=== PATIENT | male | born 1960 | race Caucasian/White ===

== ENCOUNTER → 2020-09-08 11:25 | Outpatient (CLI) | payer OTHER, MEDICAID, SELFPAY ==
--- NOTE | 2020-09-08 11:32 | DI.MRI.S_ITS ---
PROCEDURE: MR CERVICAL SPINE WO CON INDICATIONS: Radiculopathy, cervical region TECHNIQUE: Noncontrast sagittal T1 spin echo and T2 fast spin echo, sagittal STIR, foraminal oblique sagittal T2 fast spin echo, and axial gradient echo or T2 fast spin echo through the cervical spine. COMPARISON: None. FINDINGS: Image quality: Excellent. Alignment and Curvature: Straightening of the normal lordotic curvature. Trace retrolisthesis of C5 on C6 and trace anterolisthesis of C6 on C7. Bone Marrow: No fracture. Multilevel degenerative endplate sclerosis and spurring. Diffuse facet arthropathy. Spinal Cord: Visualized spinal cord has normal size and signal. No cerebellar tonsillar herniation. Paraspinous Soft Tissues: No paravertebral masses. Prevertebral soft tissues are normal in thickness. C2-C3: Normal appearance. C3-C4: Mild canal narrowing. Moderate right foraminal stenosis. No definite left foraminal narrowing. C4-C5: Mild canal narrowing which is mildly asymmetric, right greater than left. Moderate right foraminal stenosis with possible nerve root compression. Mild left foraminal narrowing. C5-C6: Mild canal narrowing with effacement of the anterior thecal sac and minimal mass effect on the cord. Mild to moderate bilateral foraminal narrowing. C6-C7: Mild canal narrowing. No foraminal stenoses. C7-T1: No canal stenosis. No foraminal stenoses IMPRESSION: Mid to lower cervical spondylosis with mild multilevel canal narrowing. Moderate right C3-C4 foraminal stenosis Moderate right C4-C5 foraminal stenosis [id number] bilateral C5-C6 foraminal narrowing. Straightening of the normal lordotic curvature. Dictated by: Moi Person M.D. on 09/09/2020 at 9:00 Approved by: Moi Person M.D. on 09/09/2020 at 9:05
== END ==
PROVIDERS: Referring Provider Family Medicine; Visit Provider Family Medicine
DX: M54.2 Cervicalgia (principal); M47.22 Other spondylosis with radiculopathy, cervical region; M48.02 Spinal stenosis, cervical region
CPT/HCPCS: 72141

== ENCOUNTER → 2021-01-30 10:48 | Outpatient (CLI) | payer OTHER, SELFPAY ==
[2021-01-30 19:51] LABS: Alanine Aminotransferase 15 IU/L (<50); Albumin 4.3 g/dL (3.5-5.0); Albumin Globulin Ratio 1.4 (1.0-2.8); Alkaline Phosphatase 81 U/L (38-126); Aspartate Aminotransferase 33 IU/L (17-59); BUN Creatinine Ratio 14.3 (6-22); Bilirubin Total 0.5 mg/dL (0.2-1.3); Blood Urea Nitrogen 11 mg/dL (9-20); Calcium 9.8 mg/dL (8.4-10.2); Carbon Dioxide 29 mmol/L (22-32); Chloride 105 mmol/L (98-107); Cholesterol 138 mg/dL (140-199); Estimated Glomerular Filt Rate > 60.0 mL/min (>60); Glucose 93 mg/dL (70-100); HDL Cholesterol 39 mg/dL (40-60); HEMOLYSIS < 15 (0-50); LDL Cholesterol Calculated 75 mg/dL (<100); Potassium 4.6 mmol/L (3.4-5.1); Sodium 139 mmol/L (137-145); Total Protein 7.3 g/dL (6.3-8.2); Triglycerides 120 mg/dL (35-150)
== END ==
PROVIDERS: PCP Physician Assistant; Referring Provider Physician Assistant; Visit Provider Physician Assistant
DX: M25.50 Pain in unspecified joint (principal); Z12.5 Encounter for screening for malignant neoplasm of prostate; Z13.6 Encounter for screening for cardiovascular disorders; Z82.49 Family history of ischemic heart disease and other diseases of the circulatory system
CPT/HCPCS: 80053; 80061; 84550

== ENCOUNTER → 2021-06-17 12:33 | Outpatient (CLI) | payer OTHER, SELFPAY ==
--- NOTE | 2021-06-17 12:34 | DI.US.S_ITS ---
PROCEDURE: US ABDOMEN LIMITED INDICATIONS: RUQ PAIN TECHNIQUE: Real-time scanning was performed of the abdominal and retroperitoneal organs, with image documentation. COMPARISON: None. FINDINGS: Liver: Increased echogenicity of the liver, compatible with hepatic steatosis. Hypoechoic area adjacent to the gallbladder fossa, which may reflect focal fatty sparing. Gallbladder: No gallbladder wall thickening, pericholecystic fluid, or shadowing gallstones. Biliary ducts: Intrahepatic bile ducts are non-dilated. Extrahepatic bile duct caliber measures 5.4 mm. Normal is 6-7 mm or less in diameter, or 10 mm or less post-cholecystectomy. Pancreas: Visualized portions of the pancreas are sonographically normal. Miscellaneous: No free abdominal fluid. IMPRESSION: No significant abnormality. Dictated by: Ron Aleman M.D. on 06/17/2021 at 13:18 Approved by: Ron Aleman M.D. on 06/17/2021 at 13:20
== END ==
PROVIDERS: PCP Family Medicine; Referring Provider Family Medicine; Visit Provider Family Medicine
DX: R10.11 Right upper quadrant pain (principal)
CPT/HCPCS: 76705

== ENCOUNTER → 2021-07-31 10:47 | Outpatient (CLI) | payer OTHER, SELFPAY ==
--- NOTE | 2021-07-31 11:43 | DI.CT.S_ITS ---
PROCEDURE: CT ABDOMEN PELVIS W CON INDICATIONS: hernia TECHNIQUE: After the administration of oral and IV contrast, axial sections were acquired from the lung bases to the pubic symphysis. Coronal and sagittal reformats were performed. For radiation dose reduction, the following was used: automated exposure control, adjustment of mA and/or kV according to patient size. COMPARISON: None. FINDINGS: Image quality: Excellent. Lung bases: There is minimal dependent atelectasis. Heart: Heart is normal in size. ABDOMEN: Liver: No mass lesion. Gallbladder: Within normal limits without gallstones. Biliary ducts: No biliary ductal dilatation. Pancreas: Unremarkable. Spleen: Normal in size. Adrenal Glands: No adrenal nodules. Kidneys and Ureters: No hydronephrosis. There is a small exophytic left renal cyst measuring 1.3 cm which appears minimally hyperdense with attenuation values slightly higher than expected for a simple cyst. Stomach and Bowel: Stomach, small bowel loops, and colon are normal in caliber and wall thickness. The appendix is reportedly surgically absent. There is colonic diverticulosis without acute diverticulitis. Peritoneum: No abnormal intraperitoneal fluid. No free air. Ventral Wall: No hernia. Abdominal Nodes: No retroperitoneal or mesenteric adenopathy by size criteria. Vessels: Aorta and inferior vena cava are normal in size. PELVIS: Pelvic Organs: Unremarkable. Bladder: Unremarkable. Pelvic Nodes: No enlarged lymph nodes. Miscellaneous: There are small bilateral fat-containing indirect inguinal hernias. Bones: Visualized osseous structures demonstrate no suspicious focal lesions. IMPRESSION: 1. Small bilateral fat-containing indirect inguinal hernias. 2. Colonic diverticulosis without acute diverticulitis. Dictated by: Brannon Almeida M.D. on 07/31/2021 at 16:33 Approved by: Brannon Almeida M.D. on 07/31/2021 at 16:45
== END ==
PROVIDERS: PCP Family Medicine; Referring Provider Surgery; Visit Provider Surgery
DX: K40.20 Bilateral inguinal hernia, without obstruction or gangrene, not specified as recurrent (principal); K57.90 Diverticulosis of intestine, part unspecified, without perforation or abscess without bleeding
CPT/HCPCS: 74177; Q9967

== ENCOUNTER → 2021-10-15 08:03 | Outpatient (CLI) | payer OTHER, SELFPAY ==
[2021-10-15 18:42] LABS: Add Manual Diff / Slide Review NO; Basophils Absolute Auto 0 /uL (0-100); Basophils Percent Auto 0.8 % (0-2); Eosinophils Absolute Auto 100 /uL (0-450); Eosinophils Percent Auto 1.7 % (2-4); Hemoglobin 14.1 g/dL (13.5-17.5); Lymphocytes Absolute Auto 1700 /uL (1100-4500); Lymphocytes Percent Auto 29.9 % (25-40); Mean Corpuscular HGB Conc 34.5 % (30-36); Mean Corpuscular Hemoglobin 32.5 PG (26-34); Mean Corpuscular Volume 94.4 fL (80-100); Monocytes Absolute Auto 500 /uL (0-900); Neutrophils Absolute Auto 3400 /uL (1500-7000); Neutrophils Percent Auto 58.6 % (50-75); Platelet Count 261 X10^3/uL (150-400); Red Blood Cell Count 4.34 X10^6/uL (4.5-5.9); Red Cell Distribution Width 12.6 % (11.6-14.8); White Blood Cell Count 5.8 X10^3/uL (4.5-11.0)
[2021-10-15 19:13] LABS: Alanine Aminotransferase 13 IU/L (<50); Albumin 4.6 g/dL (3.5-5.0); Albumin Globulin Ratio 1.8 (1.0-2.8); Alkaline Phosphatase 63 U/L (38-126); Aspartate Aminotransferase 30 IU/L (17-59); BUN Creatinine Ratio 16.5 (6-22); Bilirubin Total 0.6 mg/dL (0.2-1.3); Blood Urea Nitrogen 13 mg/dL (9-20); Calcium 9.5 mg/dL (8.4-10.2); Carbon Dioxide 28 mmol/L (22-32); Chloride 105 mmol/L (98-107); Cholesterol 130 mg/dL (140-199); Estimated Glomerular Filt Rate > 60 mL/min (>60); Globulin 2.6 g/dL (1.7-4.1); Glucose 95 mg/dL (70-100); HDL Cholesterol 38 mg/dL (40-60); HEMOLYSIS 22 (0-50); LDL Cholesterol Calculated 71 mg/dL (<100); Potassium 4.7 mmol/L (3.4-5.1); Sodium 140 mmol/L (137-145); Total Protein 7.2 g/dL (6.3-8.2); Triglycerides 107 mg/dL (35-150)
[2021-10-15 19:41] LABS: TSH w/ Reflex to FT4 1.17 uIU/mL (0.47-4.68)
== END ==
PROVIDERS: PCP Family Medicine; Visit Provider Family Medicine
DX: Z00.00 Encounter for general adult medical examination without abnormal findings (principal); I10 Essential (primary) hypertension; K43.2 Incisional hernia without obstruction or gangrene
CPT/HCPCS: 80053; 80061; 84153; 84443; 85025

== ENCOUNTER → 2021-11-05 09:37 | Outpatient (CLI) | payer OTHER, SELFPAY ==
[2021-11-05 18:38] LABS: Add Manual Diff / Slide Review NO; Basophils Absolute Auto 0 /uL (0-100); Basophils Percent Auto 0.7 % (0-2); Eosinophils Absolute Auto 100 /uL (0-450); Eosinophils Percent Auto 2.4 % (2-4); Hematocrit 40.4 % (41-53); Hemoglobin 14.3 g/dL (13.5-17.5); Lymphocytes Absolute Auto 1400 /uL (1100-4500); Lymphocytes Percent Auto 30.9 % (25-40); Mean Corpuscular HGB Conc 35.3 % (30-36); Mean Corpuscular Hemoglobin 33.1 PG (26-34); Mean Corpuscular Volume 93.8 fL (80-100); Monocytes Absolute Auto 500 /uL (0-900); Monocytes Percent Auto 11.5 % (3-14); Neutrophils Absolute Auto 2600 /uL (1500-7000); Neutrophils Percent Auto 54.5 % (50-75); Platelet Count 240 X10^3/uL (150-400); Red Blood Cell Count 4.31 X10^6/uL (4.5-5.9); Red Cell Distribution Width 12.8 % (11.6-14.8); White Blood Cell Count 4.7 X10^3/uL (4.5-11.0)
[2021-11-05 18:47] LABS: Alanine Aminotransferase 12 IU/L (<50); Albumin 4.2 g/dL (3.5-5.0); Albumin Globulin Ratio 1.6 (1.0-2.8); Alkaline Phosphatase 66 U/L (38-126); Aspartate Aminotransferase 29 IU/L (17-59); Bilirubin Total 0.5 mg/dL (0.2-1.3); Blood Urea Nitrogen 15 mg/dL (9-20); Calcium 9.1 mg/dL (8.4-10.2); Carbon Dioxide 26 mmol/L (22-32); Chloride 105 mmol/L (98-107); Estimated Glomerular Filt Rate > 60 mL/min (>60); Globulin 2.6 g/dL (1.7-4.1); Glucose 98 mg/dL (70-100); HEMOLYSIS 20 (0-50); Potassium 4.3 mmol/L (3.4-5.1); Sodium 139 mmol/L (137-145); Total Protein 6.8 g/dL (6.3-8.2)
== END ==
PROVIDERS: PCP Family Medicine; Visit Provider Physician Assistant
DX: R53.83 Other fatigue (principal)
CPT/HCPCS: 80053; 85025

== ENCOUNTER → 2022-02-26 11:16 | Outpatient (CLI) | payer OTHER, SELFPAY ==
[2022-02-26 19:39] LABS: Cholesterol 125 mg/dL (140-199); HDL Cholesterol 35 mg/dL (40-60); LDL Cholesterol Calculated 72 mg/dL (<100); Triglycerides 89 mg/dL (35-150)
== END ==
PROVIDERS: PCP Family Medicine; Visit Provider Family Medicine
DX: E78.00 Pure hypercholesterolemia, unspecified (principal)
CPT/HCPCS: 80061

== ENCOUNTER → 2023-03-03 09:00 | Outpatient (CLI) | payer OTHER, SELFPAY ==
[2023-03-05 16:10] LABS: Fecal Immunochemical Test Negative (Negative)
== END ==
PROVIDERS: PCP Physician Assistant Medical; Visit Provider Physician Assistant Medical
DX: K21.9 Gastro-esophageal reflux disease without esophagitis (principal)
CPT/HCPCS: 82274

== ENCOUNTER → 2023-05-27 09:43 | Outpatient (CLI) | payer OTHER, SELFPAY ==
[2023-05-27 21:09] LABS: Add Manual Diff / Slide Review NO; Basophils Absolute Auto 100 /uL (0-100); Basophils Percent Auto 1.6 % (0-2); Eosinophils Absolute Auto 100 /uL (0-450); Eosinophils Percent Auto 2.3 % (2-4); Hematocrit 42.2 % (41-53); Hemoglobin 14.3 g/dL (13.5-17.5); Lymphocytes Absolute Auto 2100 /uL (1100-4500); Lymphocytes Percent Auto 35.3 % (25-40); Mean Corpuscular HGB Conc 33.8 % (30-36); Mean Corpuscular Hemoglobin 31.5 PG (26-34); Mean Corpuscular Volume 93.2 fL (80-100); Monocytes Absolute Auto 500 /uL (0-900); Monocytes Percent Auto 8.5 % (3-14); Neutrophils Absolute Auto 3100 /uL (1500-7000); Neutrophils Percent Auto 52.3 % (50-75); Platelet Count 267 X10^3/uL (150-400); Red Blood Cell Count 4.53 X10^6/uL (4.5-5.9); Red Cell Distribution Width 12.6 % (11.6-14.8); White Blood Cell Count 5.8 X10^3/uL (4.5-11.0)
[2023-05-27 22:19] LABS: Alanine Aminotransferase 15 IU/L (<50); Albumin 4.2 g/dL (3.5-5.0); Albumin Globulin Ratio 1.4 (1.0-2.8); Alkaline Phosphatase 73 U/L (38-126); Aspartate Aminotransferase 28 IU/L (17-59); BUN Creatinine Ratio 16.5 (6-22); Bilirubin Total 0.6 mg/dL (0.2-1.3); Blood Urea Nitrogen 13 mg/dL (9-20); Carbon Dioxide 27 mmol/L (22-32); Chloride 105 mmol/L (98-107); Cholesterol 145 mg/dL (140-199); Estimated Glomerular Filt Rate > 60 mL/min (>60); Glucose 99 mg/dL (80-110); HDL Cholesterol 38 mg/dL (40-60); HEMOLYSIS < 15 (0-50); LDL Cholesterol Calculated 92 mg/dL (<100); Potassium 4.7 mmol/L (3.4-5.1); Sodium 138 mmol/L (137-145); Total Protein 7.2 g/dL (6.3-8.2); Triglycerides 73 mg/dL (35-150)
== END ==
PROVIDERS: PCP Physician Assistant Medical; Visit Provider Physician Assistant Medical
DX: I10 Essential (primary) hypertension (principal)
CPT/HCPCS: 80053; 80061; 85025

== ENCOUNTER 2023-06-07 10:53 | Day surgery (SDC) | payer OTHER, SELFPAY ==
[2023-06-07] VITALS (7 sets, daily range): BP systolic 87–153; BP diastolic 41–83; PULSE 61–72; RESP 13–17; TEMP 36.2–36.3; O2SAT 92–100; BMI 32.2
--- NOTE | 2023-06-07 | PATH_ITS ---
[facility] Accession Number: [id number] No. of containers..01 Tissue . 01 Material submitted: . stomach - STOMACH . 01 Clinical history: . R/O HP . 01 Diagnosis: Stomach, Biopsy: Antral mucosa with mild chronic gastritis. Negative for Helicobacter by immunohistochemistry. Negative for intestinal metaplasia. Negative for dysplasia and malignancy. [facility] 06/16/2023 0820 Local . 01 Electronically signed: . Aleah Riddle MD, Pathologist NPI- [id number] . 01 Gross description: . STOMACH: Received in formalin is 2 fragment(s) of rodrigez, soft tissue measuring 0.3 x 0.2 x 0.1 cm to 0.3 x 0.1 x 0.1 cm submitted entirely in 1 cassette(s) /AAY 06/08/2023 0534 Local . 01 Microscopic: . An immunohistochemical stain was performed to evaluate for Helicobacter organisms and is negative. The control stain showed appropriate reactivity. . . * This test was developed and its performance characteristics determined by [facility]. It has not been cleared or approved by the U.S. Food and Drug Administration. The FDA has determined that such clearance or approval is not necessary. This test is used for clinical purposes. It should not be regarded as investigational or for research. . 01 Pathologist provided ICD-10: R11.0 . 01 CPT . 909788, B11811 Specimen Comment: A courtesy copy of this report has been sent to [phone] Performed at: 01 [facility] [address] [place] [address] [address], [place], [place] [id number] MD Brannon Amos MD Phone: [phone]
[2023-06-07] MEDS: LACTATED RINGERS 1,000 ML 42 ML IV (11:29)
--- NOTE | 2023-06-07 11:31 | PM.HP.1 ---
History of Present Illness History of Present Illness Date Patient Seen: 06/07/23 Chief complaint: EGD & Colonoscopy Narrative: Nausea rule out possible GE reflux. Also rectal bleeding need for colorectal cancer screening [facility] Medical History (Updated 02/16/23 @ 15:26 by Amy Patiño PA-C) De Quervain's tenosynovitis Obstructive sleep apnea Well adult exam Abdominal pain Hypertension Incisional hernia Allergies (~1989) Neck pain (~2019) Shoulder pain (~2019) Foot pain (~2014) Tinnitus (~2015) Osteoarthritis, generalized (~2019) Cervical stenosis of spine Screening for malignant neoplasm of prostate Generalized joint pain Encounter for screening for cardiovascular disorders Surgical History Anesthesia Surfer's ear (~1999) History of appendectomy (~1975) Family History Father History of heart disease Mother Cancer Grandmother Stroke Grandfather Pneumonia Grandmother Cancer Social History household members: significant other Smoking Status: Never smoker Meds Home Medications and Allergies Home Medications Medication Instructions Recorded Confirmed Type methocarbamol 500 mg tablet 500 mg PO QID PRN 01/26/21 05/06/23 History aspirin 81 mg tablet,delayed 81 mg PO DAILY 01/27/21 06/07/23 History release (Adult Aspirin Regimen) alprazolam 0.5 mg tablet (Xanax) 0.5 mg PO DAILY PRN Allergy 08/14/22 06/07/23 History Symptoms cetirizine 10 mg capsule (Zyrtec) 10 mg PO DAILY PRN sinusitis #30 08/14/22 06/07/23 Rx caps fluticasone propionate 50 1 spray intranasal BID #16 grams 08/14/22 06/07/23 Rx mcg/actuation nasal spray,suspension (Flonase Allergy Relief) albuterol sulfate 90 mcg/actuation 1 inh inhalation ONCE wheezing 02/16/23 06/07/23 Rx aerosol inhaler #6.7 grams famotidine 20 mg tablet 20 mg PO BID #60 tabs 02/26/23 06/07/23 Rx (Zantac-360 (famotidine)) losartan 50 mg tablet See Rx Instructions .Route 03/30/23 06/07/23 Rx .COMPLEX #90 tabs atorvastatin 10 mg tablet 10 mg PO ONCE PM #90 tabs 05/06/23 06/07/23 Rx omeprazole 20 mg capsule,delayed 20 mg PO BID #180 caps 05/06/23 05/06/23 Rx release Allergies Allergy/AdvReac Type Severity Reaction Status Date / Time amoxicillin Allergy Unknown Hives Verified 06/07/23 11:09 Exam Vital Signs (past 8 hours): - 06/07/23 11:21 Temperature 97.1 F L Pulse Rate 72 Respiratory Rate 16 Blood Pressure 153/83 H Pulse Oximetry 99 Oxygen Delivery Method Room Air Oxygen Delivery Method Room Air Narrative Exam Narrative: Oropharynx free of lesions Chest clear to auscultation percussion Cardiac exam reveals no S3 or murmur Assessment & Plan Assessment & Plan narrative: Nausea possible GE reflux rule out same. Rectal bleeding rule out colorectal neoplasia Risks benefits alternatives have been explained.
--- NOTE | 2023-06-07 11:32 | PM.OP.EC ---
Operative Date/Time/Diagnoses Date of procedure: 06/07/23 Pre-op diagnosis: See indication and findings Procedure & Clinicians Study performed: EGD and colonoscopy Indications: Nausea possible GE reflux and rectal bleeding need for colorectal cancer screening Surgeon: Pita Jarquin Procedure Notes Procedure in detail: After informed consent was obtained the patient was placed in left lateral decubitus position. The video upper scope was placed into the oropharynx and with the patient's help swelled into the esophagus. The esophagus stomach and duodenum were carefully examined. On withdrawal, retroflexed view the GE junction was performed. The scope was removed. The patient tolerated procedure well. The colonoscope was then substituted and the patient turned. The scope was placed in the rectum slowly advanced cecum. On slow withdrawal mucosa was carefully examined. The scope was removed. The patient tolerated procedure well. Blood loss none Complications none Sedation mac Findings EGD 1. Normal esophagus 2. Normal proximal stomach 3. Extensive erosive gastritis in the antrum and pre-pyloric positions biopsies taken to rule out Helicobacter 4. Normal duodenal bulb and sweep Colonoscopy 1. Minimal internal hemorrhoids 2. Otherwise negative colonoscopy to cecum Will be in touch regarding biopsies of his stomach which will need treatment. He is currently off of any anti secretory medications. He does not need colonoscopy for 10 years
== END 2023-06-07 13:00 | disposition home or self-care (01) ==
PROVIDERS: PCP Physician Assistant Medical; Referring Provider Internal Medicine Gastroenterology; Visit Provider Internal Medicine Gastroenterology
PROC: 0DJ08ZZ Inspection of Upper Intestinal Tract, Via Natural or Artificial Opening Endoscopic (ICD-10-PCS; CPT 43235; principal; 2023-06-07 12:30)
PROC: 0DJD8ZZ Inspection of Lower Intestinal Tract, Via Natural or Artificial Opening Endoscopic (ICD-10-PCS; CPT 45378; 2023-06-07 12:30)
DX: K62.5 Hemorrhage of anus and rectum (principal); R11.0 Nausea; K64.8 Other hemorrhoids; K29.50 Unspecified chronic gastritis without bleeding
CPT/HCPCS: 45378; 43239

== ENCOUNTER → 2024-05-08 09:09 | Outpatient (CLI) | payer BC, SELFPAY ==
[2024-05-08 19:03] LABS: Add Manual Diff / Slide Review NO; Basophils Absolute Auto 0 /uL (0-100); Basophils Percent Auto 0.8 % (0-2); Eosinophils Absolute Auto 100 /uL (0-450); Eosinophils Percent Auto 1.5 % (2-4); Hematocrit 42.9 % (41-53); Hemoglobin 14.6 g/dL (13.5-17.5); Lymphocytes Absolute Auto 1800 /uL (1100-4500); Lymphocytes Percent Auto 28.9 % (25-40); Mean Corpuscular HGB Conc 34.1 % (30-36); Mean Corpuscular Hemoglobin 32.3 PG (26-34); Mean Corpuscular Volume 94.6 fL (80-100); Monocytes Absolute Auto 400 /uL (0-900); Monocytes Percent Auto 6.9 % (3-14); Neutrophils Absolute Auto 3800 /uL (1500-7000); Neutrophils Percent Auto 61.9 % (50-75); Platelet Count 283 X10^3/uL (150-400); Red Blood Cell Count 4.53 X10^6/uL (4.5-5.9); Red Cell Distribution Width 12.5 % (11.6-14.8); White Blood Cell Count 6.1 X10^3/uL (4.5-11.0)
[2024-05-08 19:23] LABS: Alanine Aminotransferase 13 IU/L (<50); Albumin 4.2 g/dL (3.5-5.0); Albumin Globulin Ratio 1.6 (1.0-2.8); Alkaline Phosphatase 75 U/L (38-126); Aspartate Aminotransferase 27 IU/L (17-59); BUN Creatinine Ratio 14.3 (6-22); Bilirubin Total 0.7 mg/dL (0.2-1.3); Blood Urea Nitrogen 11 mg/dL (9-20); Calcium 9.5 mg/dL (8.4-10.2); Carbon Dioxide 27 mmol/L (22-32); Chloride 105 mmol/L (98-107); Cholesterol 138 mg/dL (140-199); Estimated Glomerular Filt Rate > 60 mL/min (>60); Globulin 2.7 g/dL (1.7-4.1); Glucose 95 mg/dL (80-110); HDL Cholesterol 35 mg/dL (40-60); HEMOLYSIS 31 (0-50); Potassium 4.7 mmol/L (3.4-5.1); Sodium 138 mmol/L (137-145); Total Protein 6.9 g/dL (6.3-8.2); Triglycerides 93 mg/dL (35-150)
[2024-05-08 19:24] LABS: LDL Cholesterol Calculated 84 mg/dL (<100)
[2024-05-08 19:46] LABS: Thyroid Stimulating Hormone 1.35 uIU/mL (0.47-4.68)
[2024-05-08 19:57] LABS: Prostate Specific Antigen Scrn 3.03 ng/mL (0.1-4.0)
== END ==
PROVIDERS: PCP Physician Assistant Medical; Visit Provider Physician Assistant Medical
DX: G47.33 Obstructive sleep apnea (adult) (pediatric) (principal); R53.83 Other fatigue; I10 Essential (primary) hypertension; K21.9 Gastro-esophageal reflux disease without esophagitis; Z12.5 Encounter for screening for malignant neoplasm of prostate; F41.8 Other specified anxiety disorders
CPT/HCPCS: 80053; 80061; 84443; 85025; G0103

== ENCOUNTER 2024-05-13 10:37 | Emergency (ER) | payer BC, SELFPAY ==
[2024-05-13] VITALS (17 sets, daily range): BP systolic 136–202; BP diastolic 79–107; PULSE 61–93; RESP 13–23; TEMP 37.1; O2SAT 96–100; BMI 31.6
--- NOTE | 2024-05-13 11:07 | EKG_ITS ---
[id number] [address] Test Date: 2024-05-13 Pat Name: Dharmesh Ornelas Department: [facility] Room: Gender: Male [employer] Clerk: JES : 1960 Requested By: Order Number: [id number] Reading MD: Jerrod Johnson MD Measurements Intervals [place] Rate: 59 P: 28 NH: 150 QRS: 4 QRSD: 96 T: 28 QT: 428 QTc: 423 Interpretive Statements Sinus bradycardia Incomplete right bundle branch block NO PRIOR TRACING Electronically Signed On 05-13-2024 11:29:51 PST by Jerrod Johnson MD
[2024-05-13] MEDS: PROPARACAINE 0.5% OPHTH SOL 1 DROPS EYE-RIGHT (11:17)
[2024-05-13 11:26] LABS: Add Manual Diff / Slide Review NO; Basophils Absolute Auto 100 /uL (0-100); Basophils Percent Auto 1.1 % (0-2); Eosinophils Absolute Auto 100 /uL (0-450); Eosinophils Percent Auto 0.9 % (2-4); Hematocrit 43.9 % (41-53); Hemoglobin 14.8 g/dL (13.5-17.5); Lymphocytes Absolute Auto 2100 /uL (1100-4500); Lymphocytes Percent Auto 29.2 % (25-40); Mean Corpuscular HGB Conc 33.8 % (30-36); Mean Corpuscular Hemoglobin 32.3 PG (26-34); Mean Corpuscular Volume 95.4 fL (80-100); Monocytes Absolute Auto 500 /uL (0-900); Monocytes Percent Auto 7.1 % (3-14); Neutrophils Absolute Auto 4500 /uL (1500-7000); Neutrophils Percent Auto 61.7 % (50-75); Platelet Count 279 X10^3/uL (150-400); Red Cell Distribution Width 12.8 % (11.6-14.8); White Blood Cell Count 7.3 X10^3/uL (4.5-11.0)
--- NOTE | 2024-05-13 11:34 | ED.GENADULT ---
HPI - General Adult General Chief complaint: Weakness Stated complaint: sent by eye doctor, eye problems Time Seen by Provider: 05/13/24 10:58 Source: patient Mode of arrival: Ambulatory Limitations: no limitations History of Present Illness HPI narrative: 63-year-old male who approximately 1 month ago underwent cataract surgery. He initially had cataract surgery in his right eye that a week later in his left eye. He did have some issues with increased pressure afterwards. He was on eyedrops. He was coming to the end of his 1 month of being on those drops. He states that for the past several days/week he has had episodes when he opens his eyes in the morning after sleeping or even after taking a nap he has a brief period of time when there is blurriness and decreased vision to just his left eye. It seems to last for seconds and then completely resolves. He has seen his eye doctor who did not evaluation of his eye and said that everything in his eye appears to be okay. His eye doctor was somewhat concerned about carotid artery stenosis. Patient denies headache. Denies any visual changes here in the ER. Denies any pain. No skin rashes. He states that he did have an episode last evening when he felt like his heart was beating fast but this was very short lived and did not seem to be associated with any visual changes. He also had 1 time over the past week or so when he stood up from lying down became lightheaded but did not pass out. No chest pain, shortness of breath or other neurologic symptoms. Related Data Home Medications Medication Instructions Recorded Confirmed methocarbamol 500 mg tablet 500 mg PO QID PRN 01/26/21 05/06/23 aspirin 81 mg tablet,delayed 81 mg PO DAILY 01/27/21 06/07/23 release (Adult Aspirin Regimen) alprazolam 0.5 mg tablet (Xanax) 0.5 mg PO DAILY PRN Allergy 08/14/22 06/07/23 Symptoms Previous Rx's Medication Instructions Recorded cetirizine 10 mg capsule (Zyrtec) 10 mg PO DAILY PRN sinusitis #30 08/14/22 caps fluticasone propionate 50 1 spray intranasal BID #16 grams 08/14/22 mcg/actuation nasal spray,suspension (Flonase Allergy Relief) albuterol sulfate 90 mcg/actuation 1 inh inhalation ONCE wheezing 08/22/23 aerosol inhaler #6.7 grams famotidine 20 mg tablet 20 mg PO BID #60 tabs 02/26/23 (Zantac-360 (famotidine)) doxycycline monohydrate 100 mg 200 mg (2 x 100 mg) PO ONCE #2 caps 06/29/23 capsule omeprazole 20 mg capsule,delayed 20 mg PO DAILY PRN heartburn #90 06/29/23 release caps losartan 50 mg tablet 50 mg PO DAILY hypertension #90 03/20/24 tabs atorvastatin 10 mg tablet 10 mg PO QPM #90 tabs 05/09/24 apixaban 5 mg tablet (Eliquis) See Rx Instructions .Route 05/13/24 .COMPLEX #70 tabs Allergies Allergy/AdvReac Type Severity Reaction Status Date / Time amoxicillin Allergy Unknown Hives Verified 06/07/23 11:09 Review of Systems Review of Systems Narrative: See HPI Patient History Medical History De Quervain's tenosynovitis Obstructive sleep apnea Well adult exam Abdominal pain Hypertension Incisional hernia Allergies (~1989) Neck pain (~2019) Shoulder pain (~2019) Foot pain (~2014) Tinnitus (~2015) Osteoarthritis, generalized (~2019) Cervical stenosis of spine Screening for malignant neoplasm of prostate Generalized joint pain Encounter for screening for cardiovascular disorders Surgical History Anesthesia Surfer's ear (~1999) History of appendectomy (~1975) Family History Father History of heart disease Mother Cancer Grandmother Stroke Grandfather Pneumonia Grandmother Cancer Social History household members: significant other Smoking Status: Never smoker Smoking Status: Never smoker alcohol intake frequency: a few times a week Substance Use Type: does not use Exam Initial Vital Signs Initial Vital Signs: Vital Signs Pulse Oximetry 99 05/13/24 10:47 Const General: cooperative, comfortable and No ill appearing HENMT Head: normal to inspection and normocephalic Eyes Visual Escudero: normal visual escudero by confrontation Periorbital: periorbital findings normal Eyelids: eyelids normal Pupils: PERRL EOM: EOM intact bilaterally Other: Intra-ocular pressure right eye 24, intra-ocular pressure left eye 22 Resp Effort & Inspection: normal respiratory effort Auscultation: clear to auscultation bilaterally Cardio Rate: regular rate Rhythm: regular rhythm Skin General: no rashes or lesions noted Neuro General: patient alert, patient awake, patient oriented x3 and moves all extremities Extrem General: capillary refill normal Course Orders Ordered: ED Orders 05/13/24 11:00 EKG-12 Lead Stat 05/13/24 11:10 Complete Blood Count AUTO DIFF Stat Comprehensive Metabolic Panel Stat Lipase Stat Troponin & CK Cardiac Panel Stat 05/13/24 11:35 CT angio head and neck Stat 05/13/24 14:14 CT angio chest PE protocol Stat Discontinued Medications Apixaban (Apixaban 5 Mg Tablet) 10 mg PO NOW ONE Stop: 05/13/24 15:32 Last Admin: 05/13/24 15:38 Dose: 10 mg Proparacaine HCl (Proparacaine 0.5% Ophth Анна) 1 drops EYE-RIGHT NOW ONE Stop: 05/13/24 11:00 Last Admin: 05/13/24 11:17 Dose: 1 drops Documented By: LESLEE Vital Signs Vital signs: Vital Signs - 8 hr 05/13/24 10:47 05/13/24 10:48 05/13/24 10:49 Temperature Pulse Rate 90 85 Respiratory Rate Blood Pressure Pulse Oximetry 99 99 100 Oxygen Delivery Method 05/13/24 10:50 05/13/24 11:00 05/13/24 11:00 Temperature 98.7 F Pulse Rate 93 H 67 Respiratory Rate 16 Blood Pressure 202/107 H 159/82 H Pulse Oximetry 99 99 Oxygen Delivery Method Room Air 05/13/24 11:30 05/13/24 12:00 05/13/24 12:00 Temperature Pulse Rate 79 61 Respiratory Rate 23 13 Blood Pressure 138/79 Pulse Oximetry 97 96 Oxygen Delivery Method 05/13/24 12:25 05/13/24 12:25 05/13/24 12:30 Temperature Pulse Rate 73 Respiratory Rate 16 Blood Pressure 161/95 H 142/83 H Pulse Oximetry 97 Oxygen Delivery Method 05/13/24 12:30 05/13/24 13:00 05/13/24 13:00 Temperature Pulse Rate 66 61 Respiratory Rate 15 16 Blood Pressure 138/82 Pulse Oximetry 98 96 Oxygen Delivery Method 05/13/24 13:30 05/13/24 13:30 05/13/24 14:00 Temperature Pulse Rate 62 61 Respiratory Rate 17 16 Blood Pressure 136/86 Pulse Oximetry 96 96 Oxygen Delivery Method 05/13/24 14:00 05/13/24 14:35 05/13/24 14:36 Temperature Pulse Rate 85 69 Respiratory Rate 18 14 Blood Pressure 138/90 Pulse Oximetry 99 99 Oxygen Delivery Method 05/13/24 15:00 05/13/24 15:00 05/13/24 15:38 Temperature 98.7 F Pulse Rate 71 Respiratory Rate 15 Blood Pressure 159/94 H Pulse Oximetry 98 Oxygen Delivery Method Medical Decision Making Lab Data Lab results reviewed: Yes I reviewed the patient's lab results. 05/13/24 11:10 05/13/24 11:10 Labs: Lab Results 05/13/24 Range/Units 11:10 WBC 7.3 (4.5-11.0) X10^3/uL RBC 4.60 (4.5-5.9) X10^6/uL Hgb 14.8 (13.5-17.5) g/dL Hct 43.9 (41-53) % MCV 95.4 (80-100) fL MCH 32.3 (26-34) PG MCHC 33.8 (30-36) % RDW 12.8 (11.6-14.8) % Plt Count 279 (150-400) X10^3/uL Neut % (Auto) 61.7 (50-75) % Lymph % (Auto) 29.2 (25-40) % Motley % (Auto) 7.1 (3-14) % Eos % (Auto) 0.9 L (2-4) % Baso % (Auto) 1.1 (0-2) % Neut # (Auto) 4500 (8094-6440) /uL Lymph # (Auto) 2100 (9179-1614) /uL Motley # (Auto) 500 (0-900) /uL Eos # (Auto) 100 (0-450) /uL Baso # (Auto) 100 (0-100) /uL Sodium 136 L (137-145) mmol/L Potassium 4.2 (3.4-5.1) mmol/L Chloride 105 (98-107) mmol/L Carbon Dioxide 27 (22-32) mmol/L BUN 13 (9-20) mg/dL Creatinine 0.76 (0.66-1.25) mg/dL Estimated GFR > 60 (>60) mL/min BUN/Creatinine Ratio 17.1 (6-22) Glucose 98 (80-110) mg/dL Calcium 9.5 (8.4-10.2) mg/dL Total Bilirubin 0.5 (0.2-1.3) mg/dL AST 36 (17-59) IU/L ALT 22 (<50) IU/L Alkaline Phosphatase 78 (38-126) U/L Total Creatine Kinase 82 (55-170) U/L Troponin I < 0.012 (0.01-0.034) ng/mL Total Protein 7.7 (6.3-8.2) g/dL Albumin 4.3 (3.5-5.0) g/dL Globulin 3.4 (1.7-4.1) g/dL Albumin/Globulin Ratio 1.3 (1.0-2.8) Lipase 83 (23-300) U/L Imaging Data CTA - brain/neck: Radiologist's Impression: PROCEDURE: CT ANGIO HEAD AND NECK INDICATIONS: Lightheaded, left-sided visual changes, TECHNIQUE: After the administration of intravenous contrast, 1 mm thick sections acquired from the aortic arch through the [place]. MIP reformats of the arterial vasculature were utilized. For radiation dose reduction, the following was used: automated exposure control, adjustment of mA and/or kV according to patient size. COMPARISON: None. FINDINGS: Cerebral CT Angiogram: Internal carotid arteries: No acute findings. Intracranial ICA are patent with no significant stenosis. No occlusion. No aneurysm. Anterior cerebral arteries: Unremarkable. No significant stenosis. No occlusion. No aneurysm. Middle cerebral arteries: Unremarkable. No significant stenosis. No occlusion. No aneurysm. Posterior cerebral arteries: Unremarkable. No significant stenosis. No occlusion. No aneurysm. Basilar artery: Unremarkable. No significant stenosis. No occlusion. No aneurysm. Vertebral arteries: Unremarkable as visualized. Dural venous sinuses: Unremarkable given phase of enhancement. Other: Arterial phase brain parenchyma is unremarkable. Neck CT Angiogram: Internal carotid arteries: Unremarkable. No significant stenosis. No dissection or occlusion. Common carotid arteries: Unremarkable. No significant stenosis. No dissection or occlusion. External carotid arteries: Unremarkable. No occlusion. Vertebral arteries: Unremarkable. No significant stenosis. No dissection or occlusion. Other: In the right upper lobe, there is an subsegmental pulmonary embolism noted in the pulmonary artery. Aortic Arch and Mediastinum: Partially visualized aortic arch unremarkable without evidence of aneurysm. Origins of the great vessels unremarkable. IMPRESSION: Unremarkable CT angiogram of the head neck without intracranial large vessel occlusion, aneurysm or vascular malformation. Incidental right upper lobe subsegmental pulmonary embolism. CT scan - chest: Radiologist's Impression: PROCEDURE: CT ANGIO CHEST PE PROTOCOL INDICATIONS: Eval for PE TECHNIQUE: After the administration of intravenous contrast, 2 mm thick sections acquired from the pulmonary apices to the posterior costophrenic angles. MIP reformats of the arterial vasculature were utilized. For radiation dose reduction, the following was used: automated exposure control, adjustment of mA and/or kV according to patient size. COMPARISON: None. FINDINGS: Image quality: Diagnostic. Pulmonary arteries: Solitary filling defect in a right upper lobe pulmonary artery as noted on prior CT angiogram head neck. The remainder of the pulmonary arterial vasculature is within normal limits. Lower Neck: No enlarged lymph nodes. Thyroid: No thyroid nodules which require sonographic follow up, per consensus guidelines. Axillae: No enlarged lymph nodes. Chest Wall: Unremarkable. Bones: Unremarkable. Lungs and Pleura: No pneumothorax or pleural effusions. No consolidation or suspicious nodules. Heart: Heart size is normal. No pericardial effusion. Thoracic Vessels: No aortic aneurysm. Mediastinum and Lizzy: No enlarged lymph nodes. Esophagus: No wall thickening. No hiatal hernia. Upper Abdomen: Visualized upper abdomen solid organs and bowel loops appear normal. IMPRESSION: Solitary subsegmental right upper lobe pulmonary embolism. Remainder of the pulmonary vascular is clear. No right heart strain. ECG Data Attestation: I personally reviewed and interpreted this ECG as follows: Interpretation: Sinus bradycardia Ventricular rate of 59 Normal axis Normal QRS Normal QTC No ST T wave changes MDM Narrative Medical decision making narrative: Patient's visual disturbances occur only when he wakes up in the morning or after he opens his eyes after a nap. He states that the changes in the vision last only seconds and then completely resolved. He does not have increased intra-ocular pressure. External visual exam is unremarkable. No signs of foreign body. CTA of the head and neck is unremarkable. There was an incidental finding of a subsegmental pulmonary embolism in the right upper lung. Subsequent CT scan of the chest shows that this is the only pulmonary embolism. Patient states he does occasionally get short of breath but this is mostly with exertion and actually has been going on for some time. We did discuss that this was an incidental finding. We discussed the risks and benefits of anticoagulation. Given that we did see a pulmonary embolism I will start him on anticoagulation. First dose given here in the ER. Prescription was sent to local pharmacy. He was advised that he needed to talk with his primary provider about further evaluation and treatment. He was given return precautions. He expressed understanding and agreement. Discharge Plan Departure Patient Disposition: Home Clinical Impression: Change in vision, Pulmonary embolism Instructions: DI for Pulmonary Embolism Activity Restrictions/Additional Instructions: Continue to take all of your medications as directed. Because of the incidental finding of the pulmonary embolus we are going to place you on blood thinners. A prescription for this was to [facility]. I recommend that you contact your primary care doctor for a follow-up. Return to the emergency department for new or worsening symptoms. Prescriptions: New Eliquis 5 mg tablet See Rx Instructions .ROUTE .COMPLEX Qty: 70 0RF Rx Instructions: 2T PO BID for 7 D then 1T PO BID after that No Action losartan 50 mg tablet 50 mg PO DAILY Qty: 90 0RF atorvastatin 10 mg tablet 10 mg PO QPM Qty: 90 1RF methocarbamol 500 mg tablet 500 mg PO QID PRN albuterol sulfate 90 mcg/actuation HFA aerosol inhaler 1 inh inhalation ONCE Qty: 6.7 0RF aspirin [Adult Aspirin Regimen] 81 mg tablet,delayed release (DR/EC) 81 mg PO DAILY alprazolam [Xanax] 0.5 mg tablet 0.5 mg PO DAILY PRN (Reason: Allergy Symptoms) Rx Instructions: foe flying fluticasone propionate [Flonase Allergy Relief] 50 mcg/actuation spray,suspension 1 spray intranasal BID Qty: 16 0RF Rx Instructions: administer into each nostril Zyrtec 10 mg capsule 10 mg PO DAILY PRN (Reason: sinusitis) Qty: 30 0RF famotidine [Zantac-360 (famotidine)] 20 mg tablet 20 mg PO BID Qty: 60 0RF doxycycline monohydrate 100 mg capsule 200 mg PO ONCE Qty: 2 0RF omeprazole 20 mg capsule,delayed release(DR/EC) 20 mg PO DAILY PRN (Reason: heartburn) Qty: 90 0RF Referrals: Aleah Forbes PA-C [Primary Care Provider] - Stand Alone Forms: Patient Portal/API/Survey
[2024-05-13 11:35] LABS: Alanine Aminotransferase 22 IU/L (<50); Albumin 4.3 g/dL (3.5-5.0); Albumin Globulin Ratio 1.3 (1.0-2.8); Alkaline Phosphatase 78 U/L (38-126); Aspartate Aminotransferase 36 IU/L (17-59); BUN Creatinine Ratio 17.1 (6-22); Bilirubin Total 0.5 mg/dL (0.2-1.3); Blood Urea Nitrogen 13 mg/dL (9-20); Calcium 9.5 mg/dL (8.4-10.2); Carbon Dioxide 27 mmol/L (22-32); Chloride 105 mmol/L (98-107); Creatine Kinase 82 U/L (55-170); Estimated Glomerular Filt Rate > 60 mL/min (>60); Globulin 3.4 g/dL (1.7-4.1); Glucose 98 mg/dL (80-110); HEMOLYSIS < 15 (0-50); Lipase 83 U/L (23-300); Potassium 4.2 mmol/L (3.4-5.1); Sodium 136 mmol/L (137-145); Total Protein 7.7 g/dL (6.3-8.2)
[2024-05-13 11:47] LABS: Troponin I < 0.012 ng/mL (0.01-0.034)
--- NOTE | 2024-05-13 14:14 | DI.CT.S_ITS ---
PROCEDURE: CT ANGIO CHEST PE PROTOCOL INDICATIONS: Eval for PE TECHNIQUE: After the administration of intravenous contrast, 2 mm thick sections acquired from the pulmonary apices to the posterior costophrenic angles. MIP reformats of the arterial vasculature were utilized. For radiation dose reduction, the following was used: automated exposure control, adjustment of mA and/or kV according to patient size. COMPARISON: None. FINDINGS: Image quality: Diagnostic. Pulmonary arteries: Solitary filling defect in a right upper lobe pulmonary artery as noted on prior CT angiogram head neck. The remainder of the pulmonary arterial vasculature is within normal limits. Lower Neck: No enlarged lymph nodes. Thyroid: No thyroid nodules which require sonographic follow up, per consensus guidelines. Axillae: No enlarged lymph nodes. Chest Wall: Unremarkable. Bones: Unremarkable. Lungs and Pleura: No pneumothorax or pleural effusions. No consolidation or suspicious nodules. Heart: Heart size is normal. No pericardial effusion. Thoracic Vessels: No aortic aneurysm. Mediastinum and Lizzy: No enlarged lymph nodes. Esophagus: No wall thickening. No hiatal hernia. Upper Abdomen: Visualized upper abdomen solid organs and bowel loops appear normal. IMPRESSION: Solitary subsegmental right upper lobe pulmonary embolism. Remainder of the pulmonary vascular is clear. No right heart strain. Approved by: Óscar Nj M.D. on 05/13/2024 at 14:15
[2024-05-13] MEDS: APIXABAN 5 MG TABLET 10 MG PO (15:38)
--- NOTE | 2024-05-13 15:50 | PC.NURSE ---
Pt currently has no complaints of sob.
== END 2024-05-13 15:53 | disposition home or self-care (01) ==
PROVIDERS: Emergency Provider Emergency Medicine; PCP Physician Assistant Medical
DX: H53.9 Unspecified visual disturbance (principal); I26.99 Other pulmonary embolism without acute cor pulmonale; R42 Dizziness and giddiness; R00.1 Bradycardia, unspecified; I45.10 Unspecified right bundle-branch block
CPT/HCPCS: 70496; 70498; 71275; 80053; 82550; 83690; 84484; 85025; 93005; 93010; 99283; 99284; Q9967

== ENCOUNTER → 2024-05-16 09:30 | Outpatient (CLI) | payer BC, SELFPAY ==
[2024-05-16 19:44] LABS: Influenza A - CEPHEID Flu A NEGATIVE (NEGATIVE); Influenza B - CEPHEID Flu B NEGATIVE (NEGATIVE); Respiratory Syncytial Virus Negative (Negative)
[2024-05-16 20:01] LABS: COVID-19 CEPHEID 4-PLEX PCR Negative (Negative)
== END ==
PROVIDERS: PCP Physician Assistant Medical; Visit Provider Physician Assistant Medical
DX: R00.0 Tachycardia, unspecified (principal); F41.8 Other specified anxiety disorders; R53.83 Other fatigue; I26.93 Single subsegmental thrombotic pulmonary embolism without acute cor pulmonale; J06.9 Acute upper respiratory infection, unspecified
CPT/HCPCS: 0241U

== ENCOUNTER → 2024-05-23 08:31 | Outpatient (CLI) | payer BC, SELFPAY ==
--- NOTE | 2024-05-23 08:32 | DI.US.S_ITS ---
PROCEDURE: US PERIPH VENOUS UP EXTREM JULIANO INDICATIONS: PE TECHNIQUE: Real-time imaging, as well as color and pulse Doppler interrogation, was performed of both upper extremity deep veins from the inferior neck to the antecubital fossa. COMPARISON: None. FINDINGS: Right: The internal jugular veins, visualized portions of the subclavian veins, axillary veins, and brachial veins are free of intraluminal thrombus. Where physically possible, the veins are normally compressible. Color and pulse Doppler demonstrate normal intraluminal flow, with expected phasicity and pulsatility. Additional scanning of the cephalic and basilic veins of the superficial system demonstrates normal compressibility, without thrombus. Left: Partially occlusive thrombosis of the brachial veins. The internal jugular veins, visualized portions of the subclavian veins and axillary veins are free of intraluminal thrombus. IMPRESSION: Partially occlusive DVT of the left brachial veins. Findings were communicated to the ordering provider by the cardiovascular radiologic technologist. Dictated by: Tex Rubalcava M.D. on 05/23/2024 at 10:05 Approved by: Tex Rubalcava M.D. on 05/23/2024 at 10:08
--- NOTE | 2024-05-23 08:32 | DI.US.S_ITS ---
PROCEDURE: US PERIPH VENOUS LOW EXTREM BI INDICATIONS: pe TECHNIQUE: Real-time imaging, as well as color and pulse Doppler interrogation, were performed of the deep veins of both legs from the inguinal ligament to the popliteal fossa, with documentation of the visualized calf veins. COMPARISON: [facility], , US PERIPH VENOUS UP EXTREM JULIANO, 05/23/2024, 9:18. FINDINGS: Right: The common femoral, femoral, popliteal, and the visualized calf veins are normally compressible, and free of intraluminal thrombus. Color and pulse Doppler demonstrate normal phasic intravascular flow. There is normal augmentation response to distal compression maneuver. Left: The common femoral, femoral, popliteal, and the visualized calf veins are normally compressible, and free of intraluminal thrombus. Color and pulse Doppler demonstrate normal phasic intravascular flow. There is normal augmentation response to distal compression maneuver. IMPRESSION: No findings of deep venous thrombosis in either lower extremity. Dictated by: Jose A Louis M.D. on 05/23/2024 at 10:13 Approved by: Jose A Louis M.D. on 05/23/2024 at 10:14
== END ==
PROVIDERS: PCP Physician Assistant Medical; Referring Provider Physician Assistant Medical; Visit Provider Physician Assistant Medical
DX: I82.622 Acute embolism and thrombosis of deep veins of left upper extremity (principal); I26.99 Other pulmonary embolism without acute cor pulmonale; R00.0 Tachycardia, unspecified
CPT/HCPCS: 93970

== ENCOUNTER → 2024-05-30 10:00 | Outpatient (CLI) | payer BC, SELFPAY ==
--- NOTE | 2024-05-30 10:01 | DI.US.S_ITS ---
PROCEDURE: US CAROTID DOPPLER BI INDICATIONS: PULMONARY EMBOLISM TECHNIQUE: Color and pulse Doppler interrogation was performed of both carotid systems, with image documentation and velocity measurements. COMPARISON: None. FINDINGS: Stenosis calculations are based on SRU (Society of Radiologists in Ultrasound) criteria. Right side: Brachial blood pressure: 134/86 mm Hg. Common carotid artery peak systolic velocity: 176 cm/sec. Internal carotid artery peak systolic velocity: 96 cm/sec. Internal carotid artery end diastolic velocity: 23 cm/sec. External carotid artery peak systolic velocity: 107 cm/sec. ICA/CCA peak systolic ratio: 1.2. Estrada scale imaging description: No atheromatous plaque Percent internal carotid artery stenosis: No stenosis. Vertebral artery: Flow direction is antegrade. Left side: Brachial blood pressure: 133/87 mm Hg. Common carotid artery peak systolic velocity: 113 cm/sec. Internal carotid artery peak systolic velocity: 80 cm/sec. Internal carotid artery end diastolic velocity: 25 cm/sec. External carotid artery peak systolic velocity: 110 cm/sec. ICA/CCA peak systolic ratio: 0.9. Estrada scale imaging description: No atheromatous plaque or calcification. Percent internal carotid artery stenosis: No stenosis. Vertebral artery: Flow direction is antegrade. IMPRESSION: No sonographic evidence for stenosis of the bilateral internal carotid arteries. Dictated by: Allison Handley M.D. on 05/30/2024 at 16:54 Approved by: Allison Handley M.D. on 05/30/2024 at 16:56
== END ==
PROVIDERS: PCP Physician Assistant Medical; Referring Provider Physician Assistant Medical; Visit Provider Physician Assistant Medical
DX: I26.99 Other pulmonary embolism without acute cor pulmonale (principal)
CPT/HCPCS: 93880

== ENCOUNTER → 2024-06-06 08:42 | Outpatient (CLI) | payer BC, SELFPAY ==
--- NOTE | 2024-06-06 08:43 | DI.ECHO.S_ITS ---
[facility]+ [facility] : : [id number] : : [place] : : [id number] : : Phone: [phone] Echocardiogram Report + + :Name: BRIANNE HASSAN Study Date: 06/06/2024 Height: 68 in : :[facility] ReadingLocation: Weight: 204 lb : : Gender: Male BSA: 2.1 m2 : :: 1960 Age: 63 yrs BP: 160/100 mmHg: :Reason For Study: TACHYCARDIA : :Ordering Physician: SUSHMA, : :DANIELLA Performed By: Joseluis Adorno : :Referring: DANIELLA ORDAZ : + + Interpretation Summary 1. Normal LV contractility with EF > 60%. No WMA. No LVH. Normal diasotlic function. 2. Normal RV contractility. 3. Normal chamber sizes. 4. No significant valvular abnormalities. 5. No obvious intracardiac shunts. 6. No obvious intracardiac masses/thrombi. 7. No hemodynamically significant pericardial effusion. 8. Low right sided filling pressures. Conclusion: Normal biventricular function without significant valvular nor structural abnormalities. Procedure: A two-dimensional transthoracic echocardiogram with color flow and Doppler was performed. The study quality was technically good. There is no prior echocardiogram noted for this patient. The patient was in normal sinus rhythm during the exam. Left Ventricle: The left ventricle is normal in size. There is normal left ventricular wall thickness. There is no ventricular septal defect visualized. The ejection fraction is estimated to be 60-65%. There are no focal wall motion abnormalities. Diastolic parameters suggest probable normal left ventricular diastolic function and normal filling pressures. Right Ventricle: The right ventricle is grossly normal size. The right ventricular systolic function is normal. Atria: The left atrial size is normal. Right atrial size is normal. There is no Doppler evidence for an atrial septal defect. Mitral Valve: The mitral valve leaflets are slightly calcified. There is trace mitral regurgitation. Aortic Valve: The aortic valve is trileaflet. The aortic valve opens well. No aortic regurgitation is present. Tricuspid Valve: The tricuspid valve leaflets are thin and pliable. There is trace tricuspid regurgitation. Pulmonic Valve: The pulmonic valve is normal in structure and function. There is no pulmonic valvular regurgitation. Great Vessels: The aortic root is normal size. The dimensions of the ascending aorta are normal. The pulmonary artery is normal size. The IVC is of normal diameter and collapses greater than 50% with a sniff. This suggests a low right atrial pressure of 3 mm Hg. Pericardium/ Pleura There is no pericardial effusion. There is no pleural effusion. MMode/2D Measurements & Calculations LVIDd: 4.6 cm LVOT diam: 2.1 cm LVIDs: 3.0 cm Ao root diam: 3.7 cm FS: 34.8 % asc Aorta Diam: 3.2 cm EPSS: 0.58 cm IVSd: 0.89 cm LVPWd: 1.1 cm LV beard. diameter/BSA (cm/m^2): 2.2 LV sys. diameter/BSA (cm/m^2): 1.5 LA A2 area: 22.2 cm2 RA long axis: 4.7 cm LA A4 area: 16.9 cm2 RA area: 15.0 cm2 LA length (vol): 5.5 cm RA vol: 40.8 ml LA vol: 58.1 ml RA : 19.8 ml/m2 LA vol index: 28.2 ml/m2 IVC diam: 1.6 cm RVD1 (basal): 3.5 cm TAPSE: 2.6 cm Doppler Measurements & Calculations Ao V2 max: 151.2 cm/sec LVOT Max Russ: 122.2 cm/sec Ao V2 mean: 104.3 cm/sec LV V1 max P.0 mmHg Ao max P.1 mmHg LV V1 VTI: 28.2 cm Ao mean P.9 mmHg NORMA(I,D): 3.2 cm2 Ao V2 VTI: 31.7 cm NORMA(V,D): 2.9 cm2 sev ratio: 0.89 NORMA indexed to BSA (cm^2/m^2): 1.6 MV E max russ: 86.4 cm/sec TR max russ: 258.7 cm/sec MV A max russ: 58.3 cm/sec TR max P.8 mmHg MV E/A: 1.5 PA V2 max: 75.2 cm/sec Med Peak E' Russ: 7.2 cm/sec PA V2 mean: 53.6 cm/sec E/E' med: 11.9 PA mean P.3 mmHg Lat Peak E' Russ: 10.1 cm/sec PA pr(Accel): 34.5 mmHg E/E' lat: 8.5 E/e' average: 10.2 MV dec time: 0.21 sec SV(LVOT): 101.5 ml Reading Physician:
== END ==
LOC: ECHO 08:43
PROVIDERS: PCP Physician Assistant Medical; Referring Provider Physician Assistant Medical; Visit Provider Physician Assistant Medical
DX: I26.99 Other pulmonary embolism without acute cor pulmonale (principal); R00.0 Tachycardia, unspecified
CPT/HCPCS: 93306

== ENCOUNTER 2024-06-06 10:42 | Emergency (ER) | payer BC, SELFPAY ==
[2024-06-06 10:47] VITALS: BP 165/101; PULSE 65; RESP 14; TEMP 36.8; O2SAT 100; BMI 31.0
--- NOTE | 2024-06-06 11:00 | PC.NURSE ---
Pt is experiencing a line through his left eye in the shape of a smile. Pt denies pain. Pt has hx cataract surgery bilateral eyes 2 months ago.
--- NOTE | 2024-06-06 11:04 | ED_ITS ---
HPI - Eye Problem General Chief complaint: Eye Problems Stated complaint: Left eye pain . Thinks Retinal tear Time Seen by Provider: 06/06/24 10:54 Mode of arrival: Ambulatory History of Present Illness HPI Narrative: 63yoM presents for line across his L vision. Reports cataract surgery 2 months ago. Seen in the ED 05/13 for visual changes, at that time everything with his vision was normal. He was incidentally found to have subsegmental PE RUL. He was started on Eliquis. Patient states that last night a line seemed to be across his vision. He was already scheduled for an echocardiogram this morning, and since he lives on [facility] he wanted to make sure that his vision was ok. Visual acuity reported to be great following his cataract surgery, unchanged today. Related Data Home Medications Medication Instructions Recorded Confirmed methocarbamol 500 mg tablet 500 mg PO QID PRN 01/26/21 05/24/24 aspirin 81 mg tablet,delayed 81 mg PO DAILY 01/27/21 05/24/24 release (Adult Aspirin Regimen) alprazolam 0.5 mg tablet (Xanax) 0.5 mg PO DAILY PRN Allergy 08/14/22 05/24/24 Symptoms Previous Rx's Medication Instructions Recorded cetirizine 10 mg capsule (Zyrtec) 10 mg PO DAILY PRN sinusitis #30 08/14/22 caps fluticasone propionate 50 1 spray intranasal BID #16 grams 08/14/22 mcg/actuation nasal spray,suspension (Flonase Allergy Relief) albuterol sulfate 90 mcg/actuation 1 inh inhalation ONCE wheezing 02/16/23 aerosol inhaler #6.7 grams famotidine 20 mg tablet 20 mg PO BID #60 tabs 02/26/23 (Zantac-360 (famotidine)) omeprazole 20 mg capsule,delayed 20 mg PO DAILY PRN heartburn #90 06/29/23 release caps losartan 50 mg tablet 50 mg PO DAILY hypertension #90 03/20/24 tabs atorvastatin 10 mg tablet 10 mg PO QPM #90 tabs 05/09/24 apixaban 5 mg tablet (Eliquis) See Rx Instructions .Route 05/24/24 .COMPLEX #90 tabs Allergies Allergy/AdvReac Type Severity Reaction Status Date / Time amoxicillin Allergy Unknown Hives Verified 06/06/24 10:47 Patient History Medical History De Quervain's tenosynovitis Obstructive sleep apnea Well adult exam Abdominal pain Hypertension Incisional hernia Allergies (~1989) Neck pain (~2019) Shoulder pain (~2019) Foot pain (~2014) Tinnitus (~2016) Osteoarthritis, generalized (~2019) Cervical stenosis of spine Screening for malignant neoplasm of prostate Generalized joint pain Encounter for screening for cardiovascular disorders Surgical History Anesthesia Surfer's ear (~1999) History of appendectomy (~1975) Family History Father History of heart disease Mother Cancer Grandmother Stroke Grandfather Pneumonia Grandmother Cancer Social History household members: significant other Smoking Status: Never smoker Smoking Status: Never smoker alcohol intake frequency: a few times a week Exam Initial Vital Signs Initial Vital Signs: Vital Signs Temperature 98.2 F 06/06/24 10:47 Pulse Rate 65 06/06/24 10:47 Respiratory Rate 14 06/06/24 10:47 Blood Pressure 165/101 H 06/06/24 10:47 Pulse Oximetry 100 06/06/24 10:47 Oxygen Delivery Method Room Air 06/06/24 10:47 Const: Awake, alert, no acute distress, nontoxic appearing Eyes: PERRL, EOMI, conjunctiva clear. Visual acuity intact (see nursing note), US without obvious detachment Skin: Warm, Dry, intact, no rashes Neuro: AO x3, CN II-XII grossly intact, moves all extremities Course Orders Ordered: ED Orders 06/06/24 11:03 CT orbit BI wo con Stat Vital Signs Vital signs: Vital Signs - 8 hr 06/06/24 10:47 Temperature 98.2 F Pulse Rate 65 Respiratory Rate 14 Blood Pressure 165/101 H Pulse Oximetry 100 Oxygen Delivery Method Room Air MDM - Eye Problem Imaging Data CT scan - head: Radiologist's Impression: PROCEDURE: CT ORBIT BI WO CON INDICATIONS: LINE ACROSS VISION - RETINAL TEAR? LEFT EYE TECHNIQUE: Noncontrast 2.5 mm axial images acquired through the orbits, with coronal and sagittal reformats. For radiation dose reduction, the following was used: automated exposure control, adjustment of mA and/or kV according to patient size. COMPARISON: None. FINDINGS: Image quality: Excellent. Orbits: Globes are symmetrical. Subtle curvilinear increased density in the left globe which could represent artifact or retinal detachment. No metallic foreign bodies. The optic nerves are normal in size. No retrobulbar masses or fat abnormalities. The extra-ocular muscles are normal and symmetrical in appearance. Lacrimal glands are normal in size. Optic chiasm is normal. Intracranial: Visualized portions of the cerebral hemispheres, brainstem, and spinal cord are normal. Bones and sinuses: Visualized calvarium and facial bones appear intact. Visualized sinuses and mastoids are clear. IMPRESSION: Artifact versus retinal detachment involving the left globe. Consider MRI of the orbits for additional evaluation. Dictated by: Nevaeh George MD, PhD on 06/06/2024 at 11:32 Approved by: Nevaeh George MD, PhD on 06/06/2024 at 11:38 MDM Narrative Medical decision making narrative: Well-appearing patient with line across vision, possible retinal detachment. Point of care ultrasound performed by myself inconclusive, no obvious signs of detachment. CT orbits ordered. CT also indeterminate for detachment. There is a subtle curvilinear finding that could be artifact, but also can not rule out detachment. I was able to contact the patient's ophthalmology office and speak with Dr. Bautista, who stated that since patient was so soon postoperative he should be seen in the clinic to evaluate for detachment. They were able to fit him into the schedule at 2:20 a.m. today. Patient informed of findings, he was able to make this appointment. He was given a copy of his CT results to take to his appointment. Discharge Plan Departure Patient Disposition: Home Clinical Impression: Retinal detachment Instructions: DI for Detached Retina Activity Restrictions/Additional Instructions: CT is indeterminate for retinal tear. Dr. Bautista of Ophthalmology says that they will fit you into their schedule at 2:20 a.m. today at their office. Prescriptions: No Action losartan 50 mg tablet 50 mg PO DAILY Qty: 90 0RF atorvastatin 10 mg tablet 10 mg PO QPM Qty: 90 1RF methocarbamol 500 mg tablet 500 mg PO QID PRN albuterol sulfate 90 mcg/actuation HFA aerosol inhaler 1 inh inhalation ONCE Qty: 6.7 0RF Eliquis 5 mg tablet See Rx Instructions .ROUTE .COMPLEX Qty: 90 1RF Rx Instructions: 1 po bid aspirin [Adult Aspirin Regimen] 81 mg tablet,delayed release (DR/EC) 81 mg PO DAILY alprazolam [Xanax] 0.5 mg tablet 0.5 mg PO DAILY PRN (Reason: Allergy Symptoms) Rx Instructions: foe flying fluticasone propionate [Flonase Allergy Relief] 50 mcg/actuation spray,suspension 1 spray intranasal BID Qty: 16 0RF Rx Instructions: administer into each nostril Zyrtec 10 mg capsule 10 mg PO DAILY PRN (Reason: sinusitis) Qty: 30 0RF famotidine [Zantac-360 (famotidine)] 20 mg tablet 20 mg PO BID Qty: 60 0RF omeprazole 20 mg capsule,delayed release(DR/EC) 20 mg PO DAILY PRN (Reason: heartburn) Qty: 90 0RF Referrals: Aleah Forbes, [facility] [Primary Care Provider] - Stand Alone Forms: Patient Portal/API/Survey
--- NOTE | 2024-06-06 11:11 | DI.CT.S_ITS ---
PROCEDURE: CT ORBIT BI WO CON INDICATIONS: LINE ACROSS VISION - RETINAL TEAR? LEFT EYE TECHNIQUE: Noncontrast 2.5 mm axial images acquired through the orbits, with coronal and sagittal reformats. For radiation dose reduction, the following was used: automated exposure control, adjustment of mA and/or kV according to patient size. COMPARISON: None. FINDINGS: Image quality: Excellent. Orbits: Globes are symmetrical. Subtle curvilinear increased density in the left globe which could represent artifact or retinal detachment. No metallic foreign bodies. The optic nerves are normal in size. No retrobulbar masses or fat abnormalities. The extra-ocular muscles are normal and symmetrical in appearance. Lacrimal glands are normal in size. Optic chiasm is normal. Intracranial: Visualized portions of the cerebral hemispheres, brainstem, and spinal cord are normal. Bones and sinuses: Visualized calvarium and facial bones appear intact. Visualized sinuses and mastoids are clear. IMPRESSION: Artifact versus retinal detachment involving the left globe. Consider MRI of the orbits for additional evaluation. Dictated by: Nevaeh George MD, PhD on 06/06/2024 at 11:32 Approved by: Nevaeh George MD, PhD on 06/06/2024 at 11:38
[2024-06-06 12:01] VITALS: BP 169/95; PULSE 69; O2SAT 96
== END 2024-06-06 12:01 | disposition home or self-care (01) ==
PROVIDERS: Emergency Provider Emergency Medicine; PCP Physician Assistant Medical
DX: H33.22 Serous retinal detachment, left eye (principal); I26.99 Other pulmonary embolism without acute cor pulmonale; R30.0 Dysuria
CPT/HCPCS: 70480; 93306; 99283; 99284

== ENCOUNTER → 2025-02-05 13:25 | Outpatient (CLI) | payer BC, SELFPAY | PROVIDERS: PCP Physician Assistant Medical; Visit Provider Internal Medicine Hematology & Oncology | DX: I82.622 Acute embolism and thrombosis of deep veins of left upper extremity (principal); Z79.01 Long term (current) use of anticoagulants; I10 Essential (primary) hypertension; E78.49 Other hyperlipidemia | CPT/HCPCS: 85379; 85651 ==

== ENCOUNTER → 2025-03-05 13:49 | Outpatient (CLI) | payer BC, SELFPAY ==
[2025-03-10 16:08] LABS: ANA Screen, IFA Negative (.)
== END ==
PROVIDERS: PCP Physician Assistant Medical; Visit Provider Physician Assistant Medical
DX: M25.561 Pain in right knee (principal); M25.562 Pain in left knee
CPT/HCPCS: 85651; 86038; 86140; 86430

== ENCOUNTER → 2025-04-25 10:17 | Outpatient (CLI) | payer BC, SELFPAY ==
[2025-04-25 18:49] LABS: Add Manual Diff / Slide Review NO; Hematocrit 41.8 % (41-53); Hemoglobin 14.3 g/dL (13.5-17.5); Lymphocytes Absolute Auto 1300 /uL (1100-4500); Mean Corpuscular HGB Conc 34.1 % (30-36); Mean Corpuscular Hemoglobin 32.2 PG (26-34); Mean Corpuscular Volume 94.4 fL (80-100); Platelet Count 259 X10^3/uL (150-400)
[2025-04-25 18:57] LABS: Hemoglobin A1C% w Est Avg Glu 5.3 % (4.0-6.0)
[2025-04-25 19:08] LABS: Alanine Aminotransferase 14 IU/L (<50); Albumin 4.2 g/dL (3.5-5.0); Albumin Globulin Ratio 1.6 (1.0-2.8); Alkaline Phosphatase 68 U/L (38-126); Blood Urea Nitrogen 14 mg/dL (9-20); Calcium 9.4 mg/dL (8.4-10.2); Carbon Dioxide 25 mmol/L (22-32); Chloride 103 mmol/L (98-107); Cholesterol 102 mg/dL (140-199); Estimated Glomerular Filt Rate > 60 mL/min (>60); Globulin 2.7 g/dL (1.7-4.1); Glucose 84 mg/dL (70-99); HDL Cholesterol 33 mg/dL (40-60); HEMOLYSIS 21 (0-50); Potassium 4.7 mmol/L (3.4-5.1); Sodium 137 mmol/L (137-145); Total Protein 6.9 g/dL (6.3-8.2); Triglycerides 67 mg/dL (35-150)
[2025-04-25 19:34] LABS: TSH w/ Reflex to FT4 0.50 uIU/mL (0.47-4.68)
== END ==
PROVIDERS: PCP Physician Assistant Medical; Visit Provider Physician Assistant Medical
DX: E66.811 Obesity, class 1 (principal); M25.561 Pain in right knee; M25.562 Pain in left knee; R00.0 Tachycardia, unspecified; K21.9 Gastro-esophageal reflux disease without esophagitis; G47.30 Sleep apnea, unspecified; I10 Essential (primary) hypertension; M15.9 Polyosteoarthritis, unspecified; G47.33 Obstructive sleep apnea (adult) (pediatric); R53.83 Other fatigue; G89.29 Other chronic pain
CPT/HCPCS: 80053; 80061; 83036; 84443; 85025